=== PATIENT | male | born 1935 | race African-American/Black ===

== ENCOUNTER 2019-08-06 12:28 | Emergency (ER) | payer MEDICARE, SELFPAY ==
--- NOTE | ~2019-08-06 | CT_ITS ---
EXAMINATION: CT cervical spine wo con DATE: 08/06/2019 13:31 INDICATION: Seizure. Fall. Neck pain. TECHNIQUE: Computed tomography (CT) of the cervical spine was performed without intravenous contrast. The dose-length product was 438 mGy-cm. COMPARISON: None FINDINGS: There is reversal of cervical lordosis. No acute fracture or traumatic malalignment. There is mild chronic vertebral body height loss at C4, C5 and C6. There is disc narrowing and endplate deg enerative change at these levels. Odontoid process within normal limits. Mild multilevel uncinate deg enerative change. There is biapical pleural thickening/scarring. IMPRESSION: 1. No acute abnormality of the cervical spine. Reviewed, dictated and finalized at location A. N PICKER
--- NOTE | ~2019-08-06 | XR_ITS ---
XR shoulder RT min 2V 08/06/2019 12:56 Indication: Right shoulder pain after fall Procedure: 4 views right shoulder Comparison: No prior studies for comparison. Findings: Mild degenerative change of the glenohumeral joint. No fracture or traumatic malalignment. Surrounding osseous structures and soft tissues are normal. No foreign bodies. Impression: 1: No acute fracture. Reviewed, dictated and finalized at location A. EAR MEDICINE OFFICER Impression: 1: No acute fracture.
--- NOTE | ~2019-08-06 | CT_ITS ---
EXAMINATION: CT brain wo con DATE: 08/06/2019 13:30 INDICATION: Status post fall. Headache. TECHNIQUE: Computed tomography (CT) of the head was performed without intravenous contrast. The dose- length product was 605.33 mGy-cm. The mA was adjusted according to patient size. Iterative reconstruc tion technique was employed. COMPARISON: None FINDINGS: Generalized atrophy. There are scattered mild periventricular and subcortical white matter changes, most likely related to small vessel ischemic disease (microangiopathy). No acute intracrania l hemorrhage, infarction, mass or mass effect. There is intracranial atherosclerosis. No ventriculome omar or midline shift. Basilar cisterns are patent. Paranasal sinuses and mastoids are pneumatized. N o depressed skull fractures. IMPRESSION: 1. No acute intracranial abnormality. Reviewed, dictated and finalized at location A. RGROUND DRILL OPERATOR
--- NOTE | ~2019-08-06 | CT_ITS ---
EXAMINATION: CT abdomen pelvis w con DATE: 08/06/2019 13:31 INDICATION: Abdominal pain TECHNIQUE: Computed tomography (CT) of the abdomen and pelvis was performed with 100 cc Omnipaque 350 intravenous contrast. The dose-length product was 1402.90 mGy-cm. Automated exposure control and ite rative reconstruction technique were employed. COMPARISON: None. FINDINGS: Large hiatal hernia. Bibasilar dependent atelectasis. Heart size is normal. No significant pleural or pericardial effusion. There is atherosclerosis of the aorta. No aneurysm. There is 3.1 cm right renal cyst. There is bilateral renal cortical scarring. There are left renal cy sts, largest measuring 2.1 cm. There is an indeterminate hypodense mass of the left kidney laterally measuring 1.8 cm. There are punctate nonobstructing right renal stones. There is pancreatic head calc ifications, likely from chronic pancreatitis. The spleen is unremarkable. There is nodular thickening of the adrenal glands, likely secondary to benign adenomatous change. No lymphadenopathy. Small fat- containing umbilical hernia. No bowel obstruction. No free air or free fluid. Colonic diverticulosis without evidence for diverticulitis. There is mild lumbar spondylosis. IMPRESSION: 1. No acute abdominal abnormality. 2: Indeterminate hypodense left renal mass measuring 2.1 cm. Recommend correlation with ultrasound. 3: Large hiatal hernia. Reviewed, dictated and finalized at location A. ECTOR TIMERS IMPRESSION: 1. No acute abdominal abnormality. 2: Indeterminate hypodense left renal mass measuring 2.1 cm. Recommend correlat ion with ultrasound. 3: Large hiatal hernia.
[2019-08-06 12:30] VITALS: BP 137/83; PULSE 84; RESP 18; TEMP 36.9; O2SAT 100
--- NOTE | 2019-08-06 12:39 | ED.SEIZURE ---
HPI - Seizure General Chief Complaint: Seizure Stated Complaint: seizure Time Seen by Provider: 08/06/19 12:39 Source: patient Mode of arrival: EMS Limitations: no limitations History of Present Illness HPI Narrative: An 84 y/o male, with a PMHx of SZ, presents to the ED, via EMS, after a SZ. Pt states he is in town visiting his daughter and was loading up his car to drive back to [place] when he stumbled and hit his right shoulder. Pt then fell and then went out. Pt knew that he was having a SZ at this time and then had an episode of N/V and an uncontrolled BM. Pt notes that he started to experience lower ABD pain, a COFFEY, and generalized weakness yesterday. Pt also had an episode of N/V last night. Pt c/o right-sided neck pain that he rates as an 8/10 in severity that is worse when moving his right shoulder. Pt is on Keppra. He denies CP. Description of Episode: bowel incontinence and other (N/V) Seizure History: Yes Place: home (daughter's house) Related Data Allergies Allergy/AdvReac Type Severity Reaction Status Date / Time meperidine [From Demerol] Allergy Unknown Verified 08/06/19 12:37 Review of Systems Review of Systems: Narrative: Constitutional: Positive for generalized weakness. Negative for fever and chills. HENT: Negative for congestion. Eyes: Negative for blurred vision. Respiratory: Negative for cough and shortness of breath. Cardiovascular: Negative for chest pain. Gastrointestinal: Positive for N/V, uncontrolled BM, lower ABD pain. Negative for diarrhea. Genitourinary: Negative for dysuria and hematuria. Musculoskeletal: Positive for right-sided neck pain. Neurological: Positive for SZ, COFFEY. Negative for focal motor deficit. All systems reviewed & are unremarkable except as noted in HPI and below PMFSH Past Medical History Medical History Seizure Social History Social History (Updated 08/06/19 @ 13:45 by Rochelle Anguiano) Smoking status: Unknown if ever smoked Gender identity (if verbalized by the patient): Male Comments No PCP on file. Exam Narrative: Exam Narrative: Constitutional: Appears well-developed. No distress. Head: Normocephalic. Nose: Nose normal. Mouth/Throat: Oropharynx is clear and moist. Eyes: Conjunctiva are normal. Neck: Normal range of motion. Neck supple. Cardiovascular: Normal rate and regular rhythm. Pulmonary/Chest: Effort normal and breath sounds normal. Abdominal: Soft. Generalized ABD tenderness. Musculoskeletal: Normal range of motion. No edema. Right neck and shoulder tenderness. Neurological: Alert and oriented to person, place, and time. CN 2-12 intact. Motor strength 5/5 throughout. Sensation intact throughout. Skin: Skin is warm. No pallor. Psychiatric: Normal mood and affect. Course Reevaluation(s) Reevaluation #1: I informed patient about his labs and CT results including left renal mass on CT. Patient states that he is going back to [place]. I instructed patient follow up with PCP or urologist regarding his CT findings. Date: 08/06/19 Vital Signs Vital signs: Vital Signs Temperature 36.9 C 08/06/19 12:30 Pulse Rate 84 08/06/19 12:30 Respiratory Rate 18 08/06/19 12:30 Blood Pressure 137/83 08/06/19 12:30 Pulse Oximetry 100 08/06/19 12:30 Temperature 36.9 C 08/06/19 12:30 Pulse Rate 80 08/06/19 16:12 Respiratory Rate 18 08/06/19 16:12 Blood Pressure 118/66 08/06/19 16:12 Pulse Oximetry 97 08/06/19 16:12 MDM - Seizure Lab Data Result diagrams: 08/06/19 13:03 08/06/19 13:15 Labs: Lab Results 08/06/19 08/06/19 08/06/19 Range/Units 13:03 13:03 13:03 WBC 5.9 (4.5-10.0) K/mm3 RBC 3.28 L (4.6-6.20) M/mm3 Hgb 10.7 L (14.0-18.0) g/dL Hct 31.8 L (42.0-52.0) % MCV 97.0 (80-100) fl MCH 32.6 (26-34) pg MCHC 33.6 (32-36) g/dl RDW 13.8 (11.5-14.5) % Plt Count 289 (150-375) k/mm3 MP
[2019-08-06] MEDS: ONDANSETRON INJ 4 MG/2 ML VIAL IV PUSH (12:57)
[2019-08-06] MEDS: SODIUM CHLORIDE 0.9% IV 1,000 ML 999 ML IV CONT ×2 (13:00→15:17)
[2019-08-06 13:02] VITALS: BP 104/61; PULSE 75; RESP 17; O2SAT 100
[2019-08-06] MEDS: CYCLOBENZAPRINE HCL 10 MG TABLET PO (13:02)
[2019-08-06 13:09] LABS: Basophils Percent Auto 0.5 % (0.2-1.2); Eosinophils Absolute Auto 0.1 K/mm3 (0-0.3); Eosinophils Percent Auto 1.7 % (0-4.4); Hematocrit 31.8 % (42.0-52.0); Hemoglobin 10.7 g/dL (14.0-18.0); Immature Granulocyte Absolute 0.01 K/mm3 (0.00-0.031); Immature Granulocyte Percent A 0.2 % (0-0.5); Lymphocytes Absolute Auto 1.77 K/mm3 (0.9-3.2); Lymphocytes Percent Auto 30.2 % (18.3-44.2); Mean Corpuscular HGB Conc 33.6 g/dl (32-36); Mean Corpuscular Hemoglobin 32.6 pg (26-34); Mean Platelet Volume 8.4 fl (7.4-10.4); Monocytes Absolute Auto 0.5 K/mm3 (0.1-0.6); Monocytes Percent Auto 8.3 % (2.6-8.5); Neutrophils Absolute Auto 3.5 K/mm3 (1.3-6.7); Neutrophils Percent Auto 59.1 % (45.5-73.1); Platelet Count Result 289 k/mm3 (150-375); Red Blood Count 3.28 M/mm3 (4.6-6.20); Red Cell Distribution Width 13.8 % (11.5-14.5); White Blood Count 5.9 K/mm3 (4.5-10.0)
[2019-08-06 13:17] LABS: Blood Urea Nitrogen 13 mg/dL (8-26); Estimated CRCL calculation 31 ml/min; Estimated Glomerular Filt Rate 32
[2019-08-06 13:20] LABS: Alanine Aminotransferase 14 U/L (4-50); Albumin Level 4.3 g/dL (3.5-5.1); Alkaline Phosphatase 58 U/L (38-126); Aspartate Amino Transferase 18 U/L (17-59); Bilirubin,Total 0.4 mg/dL (0.2-1.3); Blood Urea Nitrogen 14 mg/dL (9-20); Calcium 9.7 mg/dL (8.4-10.2); Carbon Dioxide 24 mmol/L (22-30); Chloride 105 mmol/L (98-107); Estimated CRCL calculation 34 ml/min; Estimated Glomerular Filt Rate 36; Glucose 109 mg/dL (75-110); Potassium 3.9 mmol/L (3.4-5.0); Sodium 139 mmol/L (137-145)
[2019-08-06 13:59] VITALS: BP 141/69; PULSE 76; RESP 23; O2SAT 100
[2019-08-06] MEDS: KETOROLAC 15 MG/ML VIAL (*BKC) IV PUSH (14:39)
[2019-08-06 14:42] VITALS: BP 140/44; PULSE 82; RESP 13; O2SAT 93
--- NOTE | 2019-08-06 14:42 | PC.NURSE ---
called lab and requested for lipase to be added/sm
[2019-08-06 14:54] LABS: Lipase 82 U/L (23-300)
[2019-08-06 15:21] VITALS: BP 138/81; PULSE 78; RESP 20; O2SAT 97
[2019-08-06 16:12] VITALS: BP 118/66; PULSE 80; RESP 18; O2SAT 97
== END 2019-08-06 16:13 | disposition home or self-care (01) ==
PROVIDERS: Emergency Provider Emergency Medicine
DX: G40.909 Epilepsy, unspecified, not intractable, without status epilepticus (principal); M25.511 Pain in right shoulder; N18.9 Chronic kidney disease, unspecified; N28.89 Other specified disorders of kidney and ureter; W18.40XA Slipping, tripping and stumbling without falling, unspecified, initial encounter; W01.10XA Fall on same level from slipping, tripping and stumbling with subsequent striking against unspecified object, initial encounter
CPT/HCPCS: 36415; 70450; 72125; 73030; 74177; 80053; 83690; 85025; 96361; 96374; 96375; 99284; A9270; J1885; J2405; J7030; Q9967